=== PATIENT | female | born 2005 | race Two or more races ===

== ENCOUNTER 2024-08-09 23:18 | Emergency (ER) | payer MEDICAID, SELFPAY ==
[2024-08-09 23:18] VITALS: BMI 25.6
[2024-08-09 23:28] VITALS: BP 127/79; PULSE 85; RESP 18; TEMP 36.9; O2SAT 97
--- NOTE | 2024-08-09 23:39 | PD.EDRME ---
Rapid Medical Screening Exam RME Arrival date/time: 08/09/24 23:18 19-year-old female with mother at bedside presents emergency department reporting thoughts of hurting self without plan. Chief Complaint: Depression Time Seen by Provider: 08/09/24 23:31 Vital signs: Vital Signs Temperature 98.5 F 08/09/24 23:28 Pulse Rate 85 08/09/24 23:28 Respiratory Rate 18 08/09/24 23:28 Blood Pressure 127/79 08/09/24 23:28 Pulse Oximetry (%) 97 08/09/24 23:28 Oxygen Delivery Method Room Air 08/09/24 23:28 Vital signs reviewed by provider: Yes
[2024-08-10 00:34] LABS: Basophils % (Auto) 0 % (0-2.5); Eosinophils % (Auto) 0 % (0-10); Hematocrit 39.8 % (36.0-46.0); Hemoglobin 13.8 g/dL (12.0-16.0); Immature Granulocytes % (Auto) 0 % (0-0); Immature Granulocytes Auto 0.02 Thou/mm3 (0.00-0.00); Lymphocytes # (Auto) 1.8 Thou/mm3 (1.0-4.8); Lymphocytes % (Auto) 20 % (10-50); Mean Corpuscular HGB Conc 34.7 g/dl (31.0-37.0); Mean Corpuscular Hemoglobin 32.2 pg (25.0-35.0); Mean Corpuscular Volume 93 fL (80-100); Monocytes # (Auto) 0.4 Thou/mm3 (0.0-0.8); Monocytes % (Auto) 5 % (0-12); Neutrophils # (Auto) 6.7 Thou/mm3 (1.8-7.7); Neutrophils % (Auto) 75 % (37-80); Nucleated Red Blood Cell % 0 /100 WBC (0); Platelet Count 392 Thou/mm3 (140-440); RDW Standard Deviation 41.7 fL (36.4-46.3); Red Blood Count 4.28 Miln/mm3 (4.00-5.20)
[2024-08-10 00:45] LABS: Alcohol, Urine Negative (Negative); Amphetamine/Methamp Scrn,U Negative (Negative); Barbiturate Screen,Urine Negative (Negative); Benzodiazepines Screen,Urine Negative (Negative); Benzoylecgonine Screen, Ur Negative (Negative); Fentanyl Screen,Urine Negative (Negative); Opiate Screen,Urine Negative (Negative); THC Screen,Urine Positive (Negative)
[2024-08-10 00:55] LABS: HCG Qualitative,Urine Negative
[2024-08-10 01:02] LABS: Acetaminophen < 2.0 mcg/mL (10.0-20.0); Alcohol, Blood Medical < 3.0 mg/dL (0-10.0); Anion Gap 10 (7-16); BUN/Creatinine Ratio 16 Ratio (12-20); Blood Urea Nitrogen 11 mg/dL (9-23); Calcium 10.7 mg/dL (8.3-10.6); Carbon Dioxide 24.9 mMol/L (20.0-31.0); Chloride 107 mMol/L (98-107); Creatinine (Component) 0.7 mg/dL (0.6-1.3); Estimated Creatinine Clearance 111.3 mL/min (>60); Glucose 89 mg/dL (74-106); Osmolality,Calculated 281 (275-295); Potassium 4.6 mMol/L (3.4-5.1); Salicylate < 3.0 mg/dL; Sodium 142 mMol/L (136-145); eGFR > 60 See Note
--- NOTE | 2024-08-10 03:02 | PD.EDDEPRS ---
ED Psych RME/HPI General Chief Complaint: Depression Stated Complaint: DEPRESSION, ANXIETY Time Seen by Provider: 08/09/24 23:31 Arrival date/time: 08/09/24 23:18 Limitations: no limitations RME / HPI RME / HPI Narrative: 08/09/24 23:18 19-year-old female with mother at bedside presents emergency department reporting thoughts of hurting self without plan. Dr. Hernandez's Main ED Evaluation: 19yo female accompanied by her mother presents to the ED for a chief complaint of thoughts about hurting herself. Patient's mom states she was concerned for the patient due to recently finding her boyfriend cheating on her. Patient denies having any active plan. She denies having any guns. Denies any SI or HI. No known allergies. Related Data Previous Rx's ?Medication ?Instructions ?Recorded ibuprofen 400 mg tablet 400 mg PO QID PRN fever or pain 09/14/19 #30 tabs Allergies Allergy/AdvReac Type Severity Reaction Status Date / Time No Known Allergies Allergy Verified 09/14/19 10:31 Review of Systems Review of Systems Systems Reviewed: All systems reviewed, normal except as documented Past Medical History Past Medical History CARDIAC: Negative Cardiac Disorders or Congestive Heart Failure RESPIRATORY: Negative Chronic Obstructive Pulmonary Disease (COPD) or Asthma GENITOURINARY: Negative Renal Disease ENDOCRINE: Negative Diabetes Mellitus Type 1 or Diabetes Mellitus Type 2 HEMATOLOGIC: Negative Sickle Cell Disease Social History SMOKING STATUS: Never smoker ED Exam General Limitations: Present no limitations General appearance: Present alert and in no apparent distress Head Head exam: Present atraumatic Eye Eye exam: Present normal appearance, PERRL and EOMI ENT ENT exam: Present normal exam, normal oropharynx and mucous membranes moist Neck Neck exam: Present normal inspection, full ROM and trachea midline Chest Chest inspection: Present normal inspection and symmetric chest wall rise Respiratory Respiratory exam: Present normal lung sounds bilaterally Cardiovascular Cardiovascular exam: Present regular rate, normal rhythm and normal heart sounds Abdominal Exam Abdominal exam: Present soft and normal bowel sounds Extremities Exam Extremities exam: Present normal inspection and full ROM Back Exam Back exam: Present normal inspection and full ROM Neurological Exam Neurological exam: Present alert, oriented X3 and CN II-XII intact Psychiatric Psychiatric exam: Present normal affect and normal mood Skin Skin exam: Present warm, dry, intact and normal color Course Quality Measures none Orders Category Date Time Status Acetaminophen Stat Lab 08/09/24 23:38 Completed Alcohol, Blood Medical Stat Lab 08/09/24 23:38 Completed Alcohol, Urine Stat Lab 08/10/24 00:09 Completed Basic Metabolic Panel Stat Lab 08/09/24 23:38 Completed CBC Stat Lab 08/09/24 23:38 Completed Drug Screen,Urine Stat Lab 08/10/24 00:09 Completed HCG Qualitative,Urine Stat Lab 08/10/24 00:09 Completed Salicylate Stat Lab 08/09/24 23:38 Completed Referral [employer] Bed Worker NOW 08/09/24 23:40 Active Vital Signs Vital signs: Vital Signs Temperature 98.5 F 08/09/24 23:28 Pulse Rate 85 08/09/24 23:28 Respiratory Rate 18 08/09/24 23:28 Blood Pressure 127/79 08/09/24 23:28 Pulse Oximetry (%) 97 08/09/24 23:28 Oxygen Delivery Method Room Air 08/09/24 23:28 Pulse ox is 97% on room air, which is normal according to my interpretation. Psych Patient data External records reviewed:: [facility] previous records (Per chart review, patient has no relevant previous ED visits.) Clinical information provided by:: patient and parent Social determinants that could affect healthcare access:: none Patient has the following chronic illnesses:: none How is presenting disease/condition affected by chronic disease/condition?: no chronic disease Evaluation data The following diagnostics were reviewed and interpreted by me:: lab results Lab and/or radiology exams considered but not ordered:: none Interpretation Summary: CBC is normal, BMP is normal, HCG is negative, UDS is positive for marijuana, Urine alcohol is negative, according to my interpretation. Medications / Prescriptions Medications or Prescriptions considered but not ordered:: none Medication administrations:: see above, if any Consultations Consultation(s) initiated? (list below): No Diagnosis Psych Differential Diagnosis: acute anxiety and other (self cutting, doubt suicidal) Most likely diagnosis given after review of the tests above:: see below Admission Indicated Admission indicated?: not indicated Admission Request Was there a request for admission?: No Disposition Plan Disposition Plan: Discharge Discharge Attestation Discharge Attestation: The patient and all family members were given an opportunity to ask questions and understood the discharge instructions. Discharge instructions specifically effects, indications for sooner follow up or return to the emergency department, and the expected course of current diagnosis. Patient condition: Stable Discharge Plan Plan Patient Disposition: HOME (Self Care) Patient condition on transfer: Stable Prescriptions/Referrals Prescriptions/Med Rec: No Action ibuprofen 400 mg tablet 400 mg PO QID PRN (Reason: fever or pain) Qty: 30 0RF Referrals: Ludwig Lees PA-C [Primary Care Provider] - In 1 week Problem List Clinical Impression: Adjustment reaction with anxiety and depression Patient/Caregiver Discharge Instructions Education Materials: ED Adjustment Disorder Additional Instructions: Please return immediately to the emergency department if you want hurt yourself or hurt anybody else. Follow-up with your primary care physician in the next 24 hours for referral to therapy, if needed. You are always welcome to come back for voluntary consult with our elementary school social worker, if needed Print Language: Trinidadian Stand Alone Forms: [facility]ella Award Info., Patient Portal Info Letter
--- NOTE | 2024-08-10 03:05 | PC.NURSE ---
PT FROM [facility] INTO ROOM 18. PT WAS BIB MOTHER WHO STATES PT WAS MAKING SI STATEMENTS. PT CURRENTLY LYING IN GURNEY WITH MOTHER. PT STATES SHE CURRENTLY NOT HAVING ANY SI THOUGHTS. PTS STATES SHE WAS UPSET BECAUSE SHE IS HAVING ISSUES AT HOME WITH HER BOYFRIEND BUT DOES NOT WANT TO PHYSICALLY HARMSELF OR OTHERS. PT STATES SHE WANTS TO GO HOME AND DOES NOT WANT TO WAIT AND SPEAK TO CRISIS. PT AGREES TO GOING HOME WITH MOTHER WHO STATES SHE WILL HAVE HER EVALUATED OUT PT WITH [employer] AND PT AGREES. PT MOTHER ANY GUNS OR DRUGS OR POTENTIAL OBJECTS THAT MAY HARM PT. PT IS IN NAD. DR BROOKS AT BEDSIDE.
[2024-08-10 04:14] VITALS: BP 125/67; PULSE 67; RESP 19; TEMP 36.7; O2SAT 99
== END 2024-08-10 04:14 | disposition home or self-care (01) ==
PROVIDERS: Emergency Provider Emergency Medicine; PCP Physician Assistant
DX: F43.23 Adjustment disorder with mixed anxiety and depressed mood (principal)
CPT/HCPCS: 36415; 80048; 80307; 80320; 80329; 81025; 85025; 96127; 99283; G0480

== ENCOUNTER 2024-08-10 22:41 | Emergency (ER) | payer MEDICAID, SELFPAY ==
[2024-08-10 22:42] VITALS: BMI 26.5
[2024-08-10 23:29] VITALS: BP 118/74; PULSE 102; RESP 16; TEMP 36.9; O2SAT 99
[2024-08-10] MEDS: DIAZEPAM 5 MG TABLET PO (23:58)
--- NOTE | 2024-08-10 23:58 | EDNOTE_ITS ---
<Statement entered by Rose Mary Gardner MD - 08/11/24 05:45> As co-signing physician, I was present and available for consult prn. I concur with the plan and care as documented by the midlevel provider. ED Anxiety RME/HPI General Chief Complaint: Anxiety Stated Complaint: ANXIETY ATTACK Time Seen by Provider: 08/10/24 23:49 Arrival date/time: 08/10/24 22:41 19F with history of anxiety (no meds) presents to ED with anxiety/panic attack. Patient was here yesterday for SI w/o plan, but was medically cleared and discharge. Patient denies SI/HI today. Limitations: no limitations Related Data Previous Rx's ?Medication ?Instructions ?Recorded ibuprofen 400 mg tablet 400 mg PO QID PRN fever or pain 09/14/19 #30 tabs diazepam 5 mg tablet (Valium) 5 mg PO BID PRN anxiety #3 tabs 08/11/24 Allergies Allergy/AdvReac Type Severity Reaction Status Date / Time No Known Allergies Allergy Verified 08/10/24 22:44 Review of Systems Review of Systems Systems Reviewed: All systems reviewed, normal except as documented Constitutional Constitutional: Reports system reviewed and no additional complaints, except as documented, Denies fever(s) and Denies headache(s) ENT Ears, Nose, Mouth, and Throat: Denies disequilibrium and Denies headache(s) Cardiovascular Cardiovascular: Reports system reviewed and no additional complaints, except as documented, Denies chest pain and Denies dyspnea Respiratory Respiratory: Reports system reviewed and no additional complaints, except as documented, Denies cough and Denies dyspnea Gastrointestinal Gastrointestinal: Reports system reviewed and no additional complaints, except as documented, Denies abdominal pain, Denies nausea and Denies vomiting Neurologic Neurologic: Reports system reviewed and no additional complaints, except as documented, Denies confusion, Denies disequilibrium and Denies headache(s) Psychiatric Psychiatric: Reports as per HPI, Reports anxiety and Denies confusion Past Medical History Past Medical History CARDIAC: Negative Cardiac Disorders or Congestive Heart Failure RESPIRATORY: Negative Chronic Obstructive Pulmonary Disease (COPD) or Asthma GENITOURINARY: Negative Renal Disease ENDOCRINE: Negative Diabetes Mellitus Type 1 or Diabetes Mellitus Type 2 HEMATOLOGIC: Negative Sickle Cell Disease Social History SMOKING STATUS: Never smoker ED Exam General Limitations: Present no limitations General appearance: Present alert and in no apparent distress Head Head exam: Present atraumatic Eye Eye exam: Present normal appearance, PERRL and EOMI ENT ENT exam: Present normal exam, normal oropharynx and mucous membranes moist Neck Neck exam: Present normal inspection, full ROM and trachea midline Chest Chest inspection: Present normal inspection and symmetric chest wall rise Respiratory Respiratory exam: Present normal lung sounds bilaterally Cardiovascular Cardiovascular exam: Present regular rate, normal rhythm and normal heart sounds Abdominal Exam Abdominal exam: Present soft and normal bowel sounds Extremities Exam Extremities exam: Present normal inspection and full ROM Back Exam Back exam: Present normal inspection and full ROM Neurological Exam Neurological exam: Present alert, oriented X3 and CN II-XII intact Psychiatric Psychiatric exam: Present normal affect and anxious Skin Skin exam: Present warm, dry, intact and normal color Course Quality Measures none Orders Category Date Time Status Diazepam [Valium] Med 08/10/24 23:50 Discontinued 5 mg PO X1 ONE Vital Signs Vital signs: Vital Signs Temperature 98.4 F 08/10/24 23:29 Pulse Rate 102 H 08/10/24 23:29 Respiratory Rate 16 08/10/24 23:29 Blood Pressure 118/74 08/10/24 23:29 Pulse Oximetry (%) 99 08/10/24 23:29 Oxygen Delivery Method Room Air 08/10/24 23:29 Anxiety MDM Narrative MDM Narrative: 19F with history of anxiety (no meds) presents to ED with anxiety/panic attack. Patient was here yesterday for SI w/o plan, but was medically cleared and discharge. Patient denies SI/HI today. Physical exam reveals normal pupil response and EOM. Clear lungs. RRR. Patient is afebrile, alert, but mildly anxious. Meds mildly improved symptoms, but patient wants to go home. Patient again, denies SI/HI. Mom/patient state they will follow-up with PCP tomorrow. Patient data External records reviewed:: [facility] previous records Clinical information provided by:: patient Social determinants that could affect healthcare access:: mental health Patient has the following chronic illnesses:: anxiety How is presenting disease/condition affected by chronic disease/condition?: exacerbated by Evaluation data The following diagnostics were reviewed and interpreted by me:: other (specify) (none) Lab and/or radiology exams considered but not ordered:: not ordered Interpretation Summary: n/a Medications / Prescriptions Medications or Prescriptions considered but not ordered:: ordered Medication administrations:: Medication Administration History Discontinued Medications Diazepam (Diazepam 5 Mg Tablet) 5 mg PO X1 ONE Stop: 08/10/24 23:51 Last Admin: 08/10/24 23:58 Dose: 5 mg Documented By: OA Consultations Consultation(s) initiated? (list below): No Diagnosis Differential diagnosis anxiety: hyperventilation, panic disorder, acute anxiety and other (tress reaction) Most likely diagnosis given after review of the tests above:: stress reaction Admission Indicated Admission indicated?: not indicated Admission Request Was there a request for admission?: No Disposition Plan Disposition Plan: Discharge Discharge Attestation Discharge Attestation: The patient and all family members were given an opportunity to ask questions and understood the discharge instructions. Discharge instructions specifically effects, indications for sooner follow up or return to the emergency department, and the expected course of current diagnosis. Patient condition: Stable Discharge Plan Plan Patient Disposition: HOME (Self Care) Disposition Comment: Stable Prescriptions/Referrals Prescriptions/Med Rec: New diazepam [Valium] 5 mg tablet 5 mg PO BID PRN (Reason: anxiety) Qty: 3 0RF No Action ibuprofen 400 mg tablet 400 mg PO QID PRN (Reason: fever or pain) Qty: 30 0RF Problem List Clinical Impression: Adjustment reaction with anxiety and depression Patient/Caregiver Discharge Instructions Education Materials: Your Body's Response to Anxiety Additional Instructions: Please follow-up with PCP within 24-48 hours and return immediately if symptoms worsen. Print Language: Irish Stand Alone Forms: Patient Portal Info Letter TASNEEM/GRETCHEN Supervising Physician TASNEEM/GRETCHEN Supervising Physician: Dr. Gardner
[2024-08-11] MEDS: DIAZEPAM 5 MG TABLET PO (01:16)
== END 2024-08-11 01:22 | disposition home or self-care (01) ==
LOC: SERX 08-11 03:15
PROVIDERS: Emergency Provider Emergency Medicine; PCP Physician Assistant
DX: F43.23 Adjustment disorder with mixed anxiety and depressed mood (principal)
CPT/HCPCS: 99282; A9270